=== PATIENT | female | born 1975 | race Caucasian/White ===

== ENCOUNTER → 2016-08-18 | Outpatient (CLI) | payer BC ==
--- NOTE | ~2016-08-18 | CR91 ---
[facility] A Service of [facility] RADIOLOGY TEXT RESULTS PATIENT: ZAINA HAMEED LOCATION: [facility] : 71 UNIT #: [id number] AGE: [address]: ERNST NIX SEX: F ORDER DR: [id number] [place] [id number] O MR#: [id number] Acc #: [id number] NAME: ZAINA HAMEED : 1975 SEX: F STUDY DATE/TIME: 08/18/2016 15:10 UNIT: [facility] ROOM: STUDY DESCRIPTION: CR Elbow 2 View Rt Attending Physician: Ernst Nix Aprn Referring Physician: Ernst Nix Aprn Ordering Physician: Ernst Nix Aprn Primary Care Physician: Ernst Nix Aprn MEDICAL IMAGING REPORT This report is preliminary unless electronic signature is present. EXAM Right elbow, 08/18/2016. HISTORY 41-year-old female with right elbow pain for a couple of weeks. No specific injury. COMPARISON Right forearm same date. FINDINGS 2 views of the right elbow demonstrate no acute fracture or dislocation. No joint effusion. Soft tissues are unremarkable. IMPRESSION Unremarkable right elbow. Dictated by... Bradly Su M.D. THIS IS AN ELECTRONICALLY VERIFIED REPORT Bradly Su M.D. at 08/20/2016 8:05 AM HAJA/marina TD: 08/18/2016 17:01 JOB #: [id number] MEDICAL IMAGING REPORT Page 1 of 1
--- NOTE | ~2016-08-18 | CR142 ---
[facility] A Service of [facility] RADIOLOGY TEXT RESULTS PATIENT: ZAINA HAMEED LOCATION: [facility] : 71 UNIT #: [id number] AGE: [address]: ERNST NIX SEX: F ORDER DR: [id number] [place] [id number] O MR#: [id number] Acc #: [id number] NAME: ZAINA HAMEED : 1975 SEX: F STUDY DATE/TIME: 08/18/2016 15:10 UNIT: [facility] ROOM: STUDY DESCRIPTION: CR Hand Min 3 Views Rt Attending Physician: Ernst Nix Aprn Referring Physician: Ernst Nix Aprn Ordering Physician: Ernst Nix Aprn Primary Care Physician: Ernst Nix Aprn MEDICAL IMAGING REPORT This report is preliminary unless electronic signature is present. EXAM Right hand. DATE OF EXAM 08/18/2016 HISTORY Right hand pain for a couple of weeks. No specific injury. COMPARISON Right forearm, same date. FINDINGS 3 views of the right hand demonstrate no acute fracture or dislocation. Joint spaces are within normal limits. No bony erosions. Soft tissues are unremarkable. IMPRESSION Unremarkable right hand. Dictated by... Bradly Su M.D. THIS IS AN ELECTRONICALLY VERIFIED REPORT Bradly Su M.D. at 08/20/2016 8:05 AM HAJA/alix TD: 08/18/2016 17:02 JOB #: [id number] MEDICAL IMAGING REPORT [facility] A Service of [facility] RADIOLOGY TEXT RESULTS PATIENT: ZAINA HAMEED LOCATION: [facility] : 71 UNIT #: [id number] AGE: [address]: ERNST NIX SEX: F ORDER DR: Page 1 of 1
--- NOTE | ~2016-08-18 | CR133 ---
[facility]. [facility] A Service of [facility] RADIOLOGY TEXT RESULTS PATIENT: ZAINA HAMEED LOCATION: [facility] : 71 UNIT #: [id number] AGE: [address]: ERNST NIX SEX: F ORDER DR: [id number] [place] [id number] O MR#: [id number] Acc #: [id number] NAME: ZAINA HAMEED : 1975 SEX: F STUDY DATE/TIME: 08/18/2016 15:10 UNIT: [facility] ROOM: STUDY DESCRIPTION: CR Forearm 2 View Rt Attending Physician: Ernst Nix Aprn Referring Physician: Ernst Nix Aprn Ordering Physician: Ernst Nix Aprn Primary Care Physician: Ernst Nix Aprn MEDICAL IMAGING REPORT This report is preliminary unless electronic signature is present. EXAM Right forearm 08/18/2016 HISTORY 41-year-old female with right forearm pain for a couple of weeks. No specific injury. COMPARISON Right hand and right elbow x-rays performed the same date. FINDINGS 2 views of the right forearm demonstrate no acute fracture or dislocation. Soft tissues are unremarkable. IMPRESSION Unremarkable right forearm. Dictated by... Bradly Su M.D. THIS IS AN ELECTRONICALLY VERIFIED REPORT Bradly Su M.D. at 08/20/2016 8:05 AM Elyse TD: 08/18/2016 17:24 JOB #: [id number] MEDICAL IMAGING REPORT Page 1 of 1
== END | disposition home or self-care (01) ==
LOC: SRAD 15:05
DX: M25.521 Pain in right elbow (principal); M79.641 Pain in right hand; M79.631 Pain in right forearm
CPT/HCPCS: 73070; 73090; 73130